=== PATIENT | male | born 1985 | race American Indian/Alaskan Native ===

== ENCOUNTER 2017-10-10 17:36 | Emergency (ER) | payer OTHER ==
[2017-10-10 17:47] VITALS: TEMP 98; O2SAT 100; BMI 20.5
--- NOTE | 2017-10-10 19:16 | ED PDOC ---
Arrival/HPI - General Chief Complaint: Lower Extremity Problem/Injury Time Seen by Provider: 10/10/17 18:24 Historian: Patient - History of Present Illness Narrative History of Present Illness (Text): 10/10/17 19:13 32-year-old male presents today with a one-week history of right knee pain. Patient denies any recent trauma or injury. Patient denies numbness weakness or tingling in the extremity. Denies swelling. No medications have been taken for pain at home. Patient describes the pain as sharp and along the medial aspect of the knee nonradiating. No calf pain. No fevers. Patient states pain is worse with ambulation. No other complaints Time/Duration: 1 week Symptom Onset: Gradual Symptom Course: Worsening Quality: Stabbing Severity Level: 4 Past Medical History - Provider Review Nursing Documentation Reviewed: Yes - Travel History Have you recently traveled outside [place] w/in the past 3 mons?: No - Tetanus Immunization Tetanus Immunization: Unknown - Cardiac Hx Cardiac Disorders: No - Pulmonary Hx Respiratory Disorders: No - Neurological Hx Neurological Disorder: No - HEENT Hx HEENT Disorder: No - Renal Hx Renal Disorder: No - Endocrine/Metabolic Hx Endocrine Disorders: No - Hematological/Oncological Hx Blood Disorders: No - Integumentary Hx Dermatological Disorder: No - Musculoskeletal/Rheumatological Hx Musculoskeletal Disorders: No - Gastrointestinal Hx Gastrointestinal Disorders: No - Genitourinary/Gynecological Hx Genitourinary Disorders: No - Psychiatric Hx Psychophysiologic Disorder: No Hx Substance Use: No - Anesthesia Hx Anesthesia: No Family/Social History - Physician Review Nursing Documentation Reviewed: Yes Family/Social History: Unknown Family HX Smoking Status: Never Smoked Hx Alcohol Use: No Hx Substance Use: No Allergies/Home Meds Allergies/Adverse Reactions: Allergies No Known Allergies Allergy (Verified 10/10/17 17:46) Review of Systems - Review of Systems Constitutional: absent: Fatigue, Fevers Respiratory: absent: SOB, Cough Cardiovascular: absent: Chest Pain, Palpitations Gastrointestinal: absent: Abdominal Pain, Nausea, Vomiting Musculoskeletal: Arthralgias Skin: absent: Rash, Pruritis Neurological: absent: Headache, Dizziness Psychiatric: absent: Anxiety, Depression Physical Exam Vital Signs Reviewed: Yes Vital Signs Temp Pulse Resp BP Pulse Ox 10/10/17 17:47 98.0 F 58 L 17 106/47 L 100 10/10/17 17:46 98.0 F 58 L 17 106/47 L 100 Temperature: Afebrile Blood Pressure: Normal Pulse: Regular Respiratory Rate: Normal Appearance: Positive for: Well-Appearing, Non-Toxic, Comfortable Pain Distress: None Mental Status: Positive for: Alert and Oriented X 3 - Systems Exam Head: Present: Atraumatic Mouth: Present: Moist Mucous Membranes Neck: Present: Normal Range of Motion Respiratory/Chest: Present: Clear to Auscultation, Good Air Exchange. No: Respiratory Distress, Accessory Muscle Use Cardiovascular: Present: Regular Rate and Rhythm, Normal S1, S2. No: Murmurs Lower Extremity: Present: NORMAL PULSES, Normal ROM, Tenderness (right knee; + ttp over medial aspect of knee at joint line; no edema, no erythema; no ecchymosis; full rom of knee. no calf tenderness. ), Neurovascularly Intact, Capillary Refill < 2 s. No: CALF TENDERNESS, Swelling, Erythema, Deformity, Temperature Abnormalties Neurological: Present: GCS=15 Skin: Present: Warm, Dry, Normal Color. No: Rashes Psychiatric: Present: Alert, Oriented x 3 Medical Decision Making ED Course and Treatment: 10/10/17 19:14 Patient nontoxic well-appearing in no distress with stable vital signs X-rays of the knee: no fracture motrin po Patient placed in knee immobilizer. Crutches given for ambulation I discussed all results with patient advised to followup with the orthopedist for the next 2 days. Return if symptoms worsen persist or new symptoms develop Patient verbalizes understanding of discharge instructions and need for immediate followup. all aspects of this case were discussed the attending of record. Impression: knee pain Motrin every 6 hours as needed for pain Rest, ice, compression, elevation Use crutches for ambulation Followup with the orthopedist within the next 2 days Followup with primary care physician within the next 2 days Return if symptoms worsen persist or if new symptoms develop - RAD Interpretation Radiology Orders: 10/10/17 18:25 KNEE W PATELLA RIGHT 3 VIEW [RAD] Stat - Medication Orders Current Medication Orders: Discontinued Medications Ibuprofen (Motrin Tab) 600 mg PO STAT STA Stop: 10/10/17 18:26 Last Admin: 10/10/17 19:03 Dose: 600 mg MAR Pain/Vitals Document 10/10/17 19:03 EQ (Rec: 10/10/17 19:03 EQ [facility] – [id number]) Pain Reassessment Is This A Pain ReAssessment? No Sleep Is patient sleeping during reassessment? No Presence of Pain Presence of Pain Yes Pain Scale Used Pain Scale Used Numeric Disposition/Present on Arrival - Present on Arrival Any Indicators Present on Arrival: No History of DVT/PE: No History of Uncontrolled Diabetes: No Urinary Catheter: No History of Decub. Ulcer: No History Surgical Site Infection Following: None - Disposition Have Diagnosis and Disposition been Completed?: Yes Diagnosis: Knee pain Disposition: HOME/ ROUTINE Disposition Time: 19:16 Patient Plan: Discharge Condition: GOOD Discharge Instructions (ExitCare): Knee Pain (ED) Additional Instructions: Motrin every 6 hours as needed for pain Rest, ice, compression, elevation Use crutches for ambulation Followup with the orthopedist within the next 2 days Followup with primary care physician within the next 2 days Return if symptoms worsen persist or if new symptoms develop Prescriptions: Ibuprofen [Motrin] 600 mg PO Q6H PRN #20 tab PRN Reason: pain/fever reduction Referrals: Romana Sage MD [Primary Care Provider] - Follow up with primary Manuel Roldan III, MD [Medical Doctor] - Follow up with primary [facility] [Outside] - Follow up with primary Forms: [employer] (Maltese), WORK NOTE
[2017-10-10 19:59] VITALS: BP 112/69; PULSE 80; RESP 18
--- NOTE | 2017-10-11 10:15 | RAD ---
PROCEDURE: Right Knee Radiographs. HISTORY: knee pain COMPARISON: None. FINDINGS: BONES: Normal. No fracture. JOINTS: Normal. No osteoarthritis. JOINT EFFUSION: None. OTHER FINDINGS: None. IMPRESSION: Normal radiographs of the right knee.
== END 2017-10-10 19:59 | disposition home or self-care (01) ==
LOC: ED 17:36
DX: M25.561 Pain in right knee (principal)

== ENCOUNTER 2018-06-02 15:13 | Emergency (ER) | payer OTHER ==
[2018-06-02 15:13] VITALS: BMI 20.5
--- NOTE | 2018-06-02 15:38 | ED PDOC ---
Arrival/HPI - General Chief Complaint: ENT Problem Time Seen by Provider: 06/02/18 15:37 Historian: Patient - History of Present Illness Narrative History of Present Illness (Text): 06/02/18 15:48 A 32 year old male, whose past medical history includes , presents to the emergency department complaining of left-side throat pain. Patient reports pain occurs when waking up in the morning by swallowing food/saliva. Describes pain as starting from left-lower gum region down left-side of throat. Patient states taking Tylenol but has had no relief. Patient denies any other complaints at this time. Past Medical History - Provider Review Nursing Documentation Reviewed: Yes - Tetanus Immunization Tetanus Immunization: Unknown - Cardiac Hx Cardiac Disorders: No - Pulmonary Hx Respiratory Disorders: No - Neurological Hx Neurological Disorder: No - HEENT Hx HEENT Disorder: No - Renal Hx Renal Disorder: No - Endocrine/Metabolic Hx Endocrine Disorders: No - Hematological/Oncological Hx Blood Disorders: No - Integumentary Hx Dermatological Disorder: No - Musculoskeletal/Rheumatological Hx Musculoskeletal Disorders: No - Gastrointestinal Hx Gastrointestinal Disorders: No - Genitourinary/Gynecological Hx Genitourinary Disorders: No - Psychiatric Hx Psychophysiologic Disorder: No Hx Substance Use: No - Anesthesia Hx Anesthesia: No Family/Social History - Physician Review Nursing Documentation Reviewed: Yes Family/Social History: No Known Family HX Smoking Status: Never Smoked Hx Alcohol Use: No Hx Substance Use: No Allergies/Home Meds Allergies/Adverse Reactions: Allergies No Known Allergies Allergy (Verified 06/02/18 15:17) Review of Systems - Physician Review All systems were reviewed & negative as marked: Yes - Review of Systems Constitutional: absent: Fevers, Night Sweats ENT: Other (left-side throat pain) Respiratory: absent: Cough Cardiovascular: absent: Chest Pain Gastrointestinal: absent: Abdominal Pain Physical Exam - Physical Exam Narrative Physical Exam (Text): Gen: VS reviewed, alert, well developed, well nourished, nontoxic, mild distress (every patient is mild distress unless otherwise stated). ENT: normal pharynx Eye: EOMI, PERRL Neck: no JVD, supple, no adenopathy CV: regular rate, regular rhythm, no rubs, no murmur, no gallops, S1, S2, pulses , equal and strong Pulm: no distress, clear to auscultation, no wheeze, no rhonchi, breath sounds equal, no rales Abd: soft, nontender, no guarding, no rebound, no rigidity, normal bowel sounds Ext: no edema Skin: good color, no rash, no cyanosis Psych: responds appropriately to questions, normal affect Neuro: oriented x 3, CN2-12 intact grossly, motor intact, sensation intact Vital Signs Reviewed: Yes Vital Signs Temp Pulse Resp BP Pulse Ox 06/02/18 16:00 98.5 F 60 17 107/68 99 06/02/18 15:19 98.7 F 54 L 16 103/62 98 Temperature: Afebrile Blood Pressure: Normal Pulse: Regular Respiratory Rate: Normal Appearance: Positive for: Well-Appearing, Non-Toxic, Comfortable Pain Distress: None Mental Status: Positive for: Alert and Oriented X 3 Medical Decision Making ED Course and Treatment: 06/02/18 15:51 Impression: 32 year old male with left-side throat pain. No acute findings on physical exam. Plan: -- Reassess and disposition Progress Notes: 06/02/18 15:52 Patient refuses to be treated here in the ER, and requests to be given medication to aid with pain. Patient to be prescribed with Motrin 600 mg Tab PO and will follow-up with PMD. 06/02/18 18:09 patient was seen for painful swallowing, no dysphagia, no resp distress, patient was informed of plan to proceed with Ct to eval for neck/throat pathology. patient states "no i dont want to do that. i dont think its thats serious. i just need some stronger medications for the pain". patient discharged in stable condition to follow up with his pcp. - Scribe Statement The provider has reviewed the documentation as recorded by the Odalis Cardenas Provider Scribe Attestation: All medical record entries made by the Odalis were at my direction and personally dictated by me. I have reviewed the chart and agree that the record accurately reflects my personal performance of the history, physical exam, medical decision making, and the department course for this patient. I have also personally directed, reviewed, and agree with the discharge instructions and disposition. Disposition/Present on Arrival - Present on Arrival Any Indicators Present on Arrival: No History of DVT/PE: No History of Uncontrolled Diabetes: No Urinary Catheter: No History of Decub. Ulcer: No History Surgical Site Infection Following: None - Disposition Have Diagnosis and Disposition been Completed?: Yes Diagnosis: Odynophagia Disposition: HOME/ ROUTINE Disposition Time: 18:11 Condition: STABLE Discharge Instructions (ExitCare): Dysphagia Print Language: FAROESE Additional Instructions: Return for any new or worsening symptoms especially fever greater than 100.4, worsening pain, unable to swallow. YOU MUST FOLLOW UP WITH YOUR PRIMARY CARE DOCTOR FOR FURTHER EVALUATION. ALFRED SAGASTUME, thank you for letting us take care of you today. Your provider was Dr. Fab Spears and you were treated for PAINFUL SWALLOWING (ALSO KNOWN ODYNOPHAGIA). The emergency medical care you received today was directed at your acute symptoms. If you were prescribed any medication, please fill it and take as directed. It may take several days for your symptoms to resolve. Return to the Emergency Department if your symptoms worsen, do not improve, or if you have any other problems. Please contact your doctor or call one of the physicians/clinics you have been referred to that are listed on the Patient Visit Information form that is included in your discharge packet. Bring any paperwork you were given at discharge with you along with any medications you are taking to your follow up visit. Our treatment cannot replace ongoing medical care by a primary care provider outside of the emergency department. Thank you for allowing the [facility] team to be part of your care today. If you had an X-Ray or CT scan: A Radiologist will review the ED reading if any change in treatment is needed we will contact you. If you had a blood, urine, or wound culture: It will take several days for the results, if any change in treatment is needed we will contact you. If you had an STI test: It will take 48 hours for the results. Please call after 1 week if you have not heard back. Prescriptions: Ibuprofen [Motrin Tab] 600 mg PO QID #30 tab Referrals: Latonia Sosa MD [Staff Provider] - Follow up with primary Forms: [employer] (Tajik)
[2018-06-02 16:22] VITALS: BP 107/68; PULSE 60; RESP 17; TEMP 98.5; O2SAT 99
== END 2018-06-02 16:00 | disposition home or self-care (01) ==
LOC: ED 15:13
DX: R13.10 Dysphagia, unspecified (principal)

== ENCOUNTER 2019-04-06 18:42 | Emergency (ER) | payer MEDICAID, OTHER ==
[2019-04-06 18:42] VITALS: BMI 20.5
[2019-04-06 18:54] VITALS: BP 106/70; PULSE 58; RESP 18; TEMP 98.2; O2SAT 98
--- NOTE | 2019-04-06 19:42 | ED PDOC ---
Arrival/HPI <Lalo Barrera - Last Filed: 04/06/19 20:15> - General Historian: Patient - History of Present Illness Narrative History of Present Illness (Text): 04/06/19 20:28 33-year-old male presents emergency room complaining of right-sided neck pain worse with movement which started 2 days ago. Patient states that he woke up with the pain, states that the pain likely is from using a different pillow when he slept that night, states that the pain has been improving he is here requesting for pain medication. Otherwise he reports no headache, fever, URI, ear pain, rash, trauma, injury, numbness, weakness patient of pain. He reports no other symptoms and has no other complaints. <Divine Craig - Last Filed: 04/06/19 20:29> - General Chief Complaint: Back Pain Time Seen by Provider: 04/06/19 18:52 Past Medical History - Tetanus Immunization Tetanus Immunization: Unknown - Cardiac Hx Cardiac Disorders: No - Pulmonary Hx Respiratory Disorders: No - Neurological Hx Neurological Disorder: No - HEENT Hx HEENT Disorder: No - Renal Hx Renal Disorder: No - Endocrine/Metabolic Hx Endocrine Disorders: No - Hematological/Oncological Hx Blood Disorders: No - Integumentary Hx Dermatological Disorder: No - Musculoskeletal/Rheumatological Hx Musculoskeletal Disorders: No - Gastrointestinal Hx Gastrointestinal Disorders: No - Genitourinary/Gynecological Hx Genitourinary Disorders: No - Psychiatric Hx Psychophysiologic Disorder: No Hx Substance Use: No - Anesthesia Hx Anesthesia: No <Divine Craig - Last Filed: 04/06/19 20:29> Family/Social History Family/Social History: No Known Family HX Smoking Status: Never Smoked Hx Alcohol Use: No Hx Substance Use: No <Divine Craig - Last Filed: 04/06/19 20:29> Allergies/Home Meds <Lalo Barrera - Last Filed: 04/06/19 20:15> <Divine Craig - Last Filed: 04/06/19 20:29> Allergies/Adverse Reactions: Allergies No Known Allergies Allergy (Verified 04/06/19 18:54) Review of Systems - Review of Systems Constitutional: absent: Fatigue, Fevers ENT: absent: Sore Throat, Rhinorrhea, Sinus Congestion Respiratory: absent: SOB, Cough Cardiovascular: absent: Chest Pain, Palpitations, Edema Gastrointestinal: absent: Abdominal Pain, Nausea, Vomiting Genitourinary Male: absent: Dysuria, Frequency, Hematuria Musculoskeletal: Neck Pain. absent: Arthralgias, Back Pain Skin: absent: Rash, Pruritis, Skin Lesions Neurological: absent: Headache, Dizziness <Divine Craig - Last Filed: 04/06/19 20:29> Physical Exam Vital Signs Temp Pulse Resp BP Pulse Ox 04/06/19 18:52 98.2 F 58 L 18 106/70 98 <Lalo Barrera - Last Filed: 04/06/19 20:15> Vital Signs Temp Pulse Resp BP Pulse Ox 04/06/19 18:52 98.2 F 58 L 18 106/70 98 Temperature: Afebrile Blood Pressure: Normal Pulse: Regular Respiratory Rate: Normal Appearance: Positive for: Well-Appearing, Non-Toxic, Comfortable Pain Distress: None Mental Status: Positive for: Alert and Oriented X 3 - Systems Exam Head: Present: Atraumatic, Normocephalic Pupils: Present: PERRL Extroacular Muscles: Present: EOMI Conjunctiva: Present: Normal Ears: Present: Normal, NORMAL TM Mouth: Present: Moist Mucous Membranes Pharnyx: Present: Normal. No: ERYTHEMA, EXUDATE Neck: Present: Normal Range of Motion, Paraspinal Tenderness (+mild R paracervical tenderness). No: Meningeal Signs, MIDLINE TENDERNESS, Lymphadenop athy Respiratory/Chest: Present: Clear to Auscultation, Good Air Exchange. No: Respiratory Distress, Accessory Muscle Use Cardiovascular: Present: Regular Rate and Rhythm, Normal S1, S2. No: Murmurs Back: Present: Normal Inspection. No: Midline Tenderness Upper Extremity: Present: Normal Inspection. No: Cyanosis, Edema Lower Extremity: Present: Normal Inspection. No: Edema Neurological: Present: GCS=15, CN II-XII Intact, Speech Normal Skin: Present: Warm, Dry, Normal Color. No: Rashes Psychiatric: Present: Alert, Oriented x 3, Normal Insight, Normal Concentration <Divine Craig - Last Filed: 04/06/19 20:29> Medical Decision Making - Medication Orders Current Medication Orders: Discontinued Medications Cyclobenzaprine HCl (Flexeril) 10 mg PO STAT STA Stop: 04/06/19 19:51 Last Admin: 04/06/19 20:02 Dose: 10 mg Ibuprofen (Motrin Tab) 600 mg PO STAT STA Stop: 04/06/19 19:52 Last Admin: 04/06/19 20:03 Dose: 600 mg MAR Pain/Vitals Document 04/06/19 20:03 KV (Rec: 04/06/19 20:04 KV [id number]) Pain Reassessment Is This A Pain ReAssessment? No Sleep Is patient sleeping during reassessment? No Presence of Pain Presence of Pain Yes Pain Scale Used Protocol: PSCALES Pain Scale Used Numeric Location Left, Right or Bilateral Right Pain Location Body Site Neck Description Constant Intensity 3 Scale Used Numeric <Lalo Barrera - Last Filed: 04/06/19 20:15> ED Course and Treatment: 04/06/19 20:24 Patient medicated with Motrin and Flexeril p.o. Advised to follow up with primary care physician or the clinic in 1-2 days without fail. Advised to take medication as prescribed. Return to the emergency room at any time for any new or worsening symptoms. Patient states he fully agrees with and understands discharge instructions. States that he agrees with the plan and disposition. Verbalized and repeated discharge instructions and plan. I have given the patient opportunity to ask any additional questions. <Divine Craig - Last Filed: 04/06/19 20:29> - PA / CONSULTING SENIOR PRACTICE DIRECTOR / Resident Statement ANGELI has reviewed & agrees with the documentation as recorded. <Lalo Barrera - Last Filed: 04/06/19 20:15> - PA / CONSULTING SENIOR PRACTICE DIRECTOR / Resident Statement ANGELI has reviewed & agrees with the documentation as recorded. <Divine Craig - Last Filed: 04/06/19 20:29> Disposition/Present on Arrival <Lalo Barrera - Last Filed: 04/06/19 20:15> - Present on Arrival Any Indicators Present on Arrival: No History of DVT/PE: No History of Uncontrolled Diabetes: No Urinary Catheter: No History of Decub. Ulcer: No History Surgical Site Infection Following: None - Disposition Have Diagnosis and Disposition been Completed?: Yes Disposition Time: 19:45 Patient Plan: Discharge <Divine Craig - Last Filed: 04/06/19 20:29> - Disposition Diagnosis: Neck pain Disposition: HOME/ ROUTINE Patient Problems: Current Active Problems Problem Status Onset Neck pain Acute Condition: STABLE Discharge Instructions (ExitCare): Neck Pain Additional Instructions: Thank you for letting us take care of you today. You were treated for neck pain. The emergency medical care you received today was directed at your acute symptoms. If you were prescribed any medication, please fill it and take as directed. It may take several days for your symptoms to resolve. Return to the Emergency Department if your symptoms worsen, do not improve, or if you have any other problems. Please contact your doctor in 2 days for re-evaluation and follow up / or call one of the physicians/clinics you have been referred to that are listed on the Patient Visit Information form that is included in your discharge packet. Bring any paperwork you were given at discharge with you along with any medications you are taking to your follow up visit. Our treatment cannot replace ongoing medical care by a primary care provider (PCP) outside of the emergency department. Thank you for allowing the [facility] team to be part of your care today. Prescriptions: Cyclobenzaprine [Cyclobenzaprine HCl] 10 mg PO TID PRN #15 tab PRN Reason: Muscle Spasm Ibuprofen [Motrin Tab] 600 mg PO QID PRN #20 tab PRN Reason: Pain, Moderate (4-7) Referrals: PCP,NO [Primary Care Provider] - Follow up with primary [facility] [Outside] - Follow up with primary Forms: [employer] (Tajik), WORK NOTE
== END 2019-04-06 20:27 | disposition home or self-care (01) ==
LOC: ED 18:42
DX: M54.2 Cervicalgia (principal)